=== PATIENT | male | born 1950 | race Caucasian/White ===

== ENCOUNTER 2016-10-26 08:48 | Emergency (ER) | payer OTHER ==
[2016-10-26 08:59] VITALS: BP 147/98; PULSE 94; TEMP 98.6; BMI 25.7
--- NOTE | 2016-10-26 10:03 | PDOC ---
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 Patient reports having severe pain to his right lower back radiating to his right buttocks down his right posterior thigh then laterally down his right lower leg to his foot. Patient denies any numbness of his legs or any saddle anesthesia or any incontinency. Patient denies any previous back injury. Patient reports that this occurred at 7:30 this a.m. patient took 800 mg of ibuprofen without any relief of pain. Patient reports pain is severe and is worse when putting any pressure on his right leg. Patient denies any other injury. Patient denies hitting his head. Occurred: reports: this morning Severity: reports: severe (rt. buttock radiates down rt. buttock posterior leg to rt. lower leg laterally to rt. foot ) Pain Location: reports: back (mid lumbar to rt. buttock down rt. posterior leg to rt. lower leg laterally to rt. foot) Method of Injury: Yes: fall Modifying Factors: improves with: None Loss of Consciousness: no loss of consciousness Associated Symptoms (Fall): trouble walking (on rt leg ) Past History - Past Medical History Allergies/Adverse Reactions: Allergies Allergy/AdvReac Type Severity Reaction Status Date / Time No Known Allergies Allergy Verified 10/26/16 08:51 Home Medications: Ambulatory Orders Oxycodone HCl/Acetaminophen [Percocet 5-325 mg Tablet] 1 - 2 tab PO Q6H #18 tab MDD 6 10/26/16 Other medical history: none - Psycho/Social/Smoking Cessation Hx Anxiety: No Suicidal Ideation: No Smoking History: Current every day smoker Have you smoked in the past 12 months: Yes Number of Cigarettes Smoked Daily: 20 Information on smoking cessation initiated: Yes 'Breaking Loose' booklet given: 10/26/16 Hx Alcohol Use: No Drug/Substance Use Hx: No Substance Use Type: None Review of Systems - Review of Systems Able to Perform ROS?: Yes Constitutional: No: Symptoms Reported HEENTM: No: Symptoms Reported Respiratory: No: Symptoms reported Cardiac (ROS): No: Symptoms Reported ABD/GI: No: Symptoms Reported : No: Symptoms Reported Musculoskeletal: Yes: Back Pain (mid lumbar area radiates to rt buttock posterior thigh to rt. lower leg laterally to rt. foot) Integumentary: No: Symptoms Reported Neurological: No: Symptoms reported *Physical Exam - Vital Signs Last Vital Signs Temp Pulse Resp BP Pulse Ox 98.6 F 94 H 18 147/98 100 10/26/16 08:52 10/26/16 08:52 10/26/16 08:52 10/26/16 08:52 10/26/16 08:52 - Physical Exam General Appearance: Yes: Appropriately Dressed Respiratory/Chest: positive: Lungs Clear, Normal Breath Sounds. negative: Chest Tender, Respiratory Distress Cardiovascular: positive: Regular Rhythm, Regular Rate, S1, S2 Vascular Pulses: Dorsalis-Pedis (R): 4+ Musculoskeletal: positive: Normal Inspection, Decreased Range of Motion (from waist ), Other. negative: CVA Tenderness, CVA Tenderness (R), CVA Tenderness (L ), Vertebral Tenderness (mid lumbar spine ) Extremity: positive: Tender (rt. posterior thigh, rt. lateral lower leg to foot ) Integumentary: positive: Normal Color Neurologic: positive: Alert, Normal Response, Motor Strength 5/5 (motor/ strenght rt. leg 4/4), Respond to painful stimul (rt. leg ), Responsive, Other ( + rt. leg SLR at 30 degrees ). negative: Numbness, Sensory Deficit (rt. 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 Patient reports having severe pain to his right lower back radiating to his right buttocks down his right posterior thigh then laterally down his right lower leg to his foot. Patient denies any numbness of his legs or any saddle anesthesia or any incontinency. Patient denies any previous back injury. Patient reports that this occurred at 7:30 this a.m. patient took 800 mg of ibuprofen without any relief of pain. Patient reports pain is severe and is worse when putting any pressure on his right leg. Patient denies any other injury. Patient denies hitting his head. fall rt. lumbar back pain with radiculopathy rt. buttock leg r/o titi injury lumbar/sacral spine PLAN; percocet 5mg/325 mg po now than every 6 hr sprn pain # 12 xray lumbar spine no acute pathology follow up with ortho 10/26/16 11:39 feeling slightly better [employer] Patient Search Multi-Patient Search Reports Drug Listing Designation My [facility] Numbers Data Detail Level: Printer-Friendly View Extended View Confidential Drug Utilization Report Search Terms: Nawaf Graham, 1950 Search Date: 10/26/2016 11:43:15 AM The Drug Utilization Report below displays all of the controlled substance prescriptions, if any, that your patient has filled in the last twelve months. The information displayed on this report is compiled from pharmacy submissions to the Department, and accurately reflects the information as submitted by the pharmacies. This report was requested by: Maria Del Rosario Fitzgerald | Reference #: [id number] *DC/Admit/Observation/Transfer Diagnosis at time of Disposition: Lumbar back pain with radiculopathy affecting right lower extremity Fall Qualifiers: Encounter type: initial encounter Qualified Code(s): W19.XXXA - Unspecified fall, initial encounter - Discharge Dispostion Disposition: HOME Condition at time of disposition: Stable - Patient Instructions Additional Instructions: Follow up with orthopedist within the next few days Avoid any strenous activities or exercise return to emergency room if symptoms worsen numbness of leg or private areas, inability to hold urine or bowel movement Patient voiced understanding of discharge instructions and all questions were answered"
== END 2016-10-26 11:55 | disposition home or self-care (01) ==
LOC: JERFT 08:48 → JER 08:48 → JERFT 11:55
DX: M54.16 Radiculopathy, lumbar region (principal); W07.XXXA Fall from chair, initial encounter; Y93.89 Activity, other specified; Y92.59 Other trade areas as the place of occurrence of the external cause; Y99.0 Civilian activity done for income or pay
CPT/HCPCS: 72100-TC; 99281-25